=== PATIENT | female | born 1970 | race Caucasian/White ===

== ENCOUNTER 2023-06-12 08:11 | Day surgery (SDC) | payer OTHER ==
[~2023-06-12] VITALS: Ht 164 cm; Wt 139.4 kg
[~2023-06-12 08:11] MED LIST: ATEN25 PO; ATOR40TA PO; B-12500 MC2; HYDCHL25 PO; IBUP800 PO; LOSA50 PO; Lopressor 25 mg25 MG PO; METO25ER PO; Naprosyn500 MG PO; Norco 5-325 Ta1 EACH PO; OZEMPIC0.25 MG/02 SC; PREG300 PO; Robaxin750 MG PO; SERT100 PO; TOBR.3OPSO OP; Valium5 MG PO
[2023-06-12 09:23] VITALS: BP 141/95
[2023-06-12] MEDS ORDERED: ATOR40TA PO (09:24)
--- NOTE | 2023-06-12 09:58 | NUR ---
06/12/23 0958 Daysi Ortez History, Chart, Medications and Allergies reviewed before start of procedure.MONITOR INTACT WITH CONTINUOUS PULSE OXIMETRY, CONTINUOUS END TITAL CO2, AND INTERMITTENT BLOOD PRESSURE.3-LEAD EKG REVIEWED WITH PHYSICIAN PRIOR TO START OF PROCEDURE.O2 VIA N/C INTACT THROUGHOUT SEDATION/PROCEDURE.SEE ANESTHESIA RECORD.
[2023-06-12 11:06] VITALS: BP 139/92
[2023-06-12 11:16] VITALS: BP 141/91
[2023-06-12 11:32] VITALS: BP 154/86
--- NOTE | 2023-06-12 12:06 | NUR ---
Discharge instructions reviewed with patient. Patient verbalizes understanding. Copy given to patient to take home. Patient States Post-Procedure ride home has been arranged. Discharged via wheelchair to private car for ride home.
== END 2023-06-12 11:59 | disposition home or self-care (01) ==
LOC: ORSCMMR 08:11 → ORD 09:30 → ORSCMMR 09:45 → ORD 09:45 → ORSCMMR 11:59
PROVIDERS: Internal Medicine Gastroenterology
PROC: 0DBE8ZX Excision of Large Intestine, Via Natural or Artificial Opening Endoscopic, Diagnostic (ICD-10-PCS; principal; 2023-06-12 09:45)
PROC: 0DB78ZX Excision of Stomach, Pylorus, Via Natural or Artificial Opening Endoscopic, Diagnostic (ICD-10-PCS; principal; 2023-06-12 09:45)
PROC: 0DB98ZX Excision of Duodenum, Via Natural or Artificial Opening Endoscopic, Diagnostic (ICD-10-PCS; principal; 2023-06-12 09:45)
DX: K62.5 Hemorrhage of anus and rectum (principal); R14.0 Abdominal distension (gaseous); K31.7 Polyp of stomach and duodenum; K57.30 Diverticulosis of large intestine without perforation or abscess without bleeding; K64.4 Residual hemorrhoidal skin tags; I10 Essential (primary) hypertension; G47.33 Obstructive sleep apnea (adult) (pediatric); E11.9 Type 2 diabetes mellitus without complications; E66.01 Morbid (severe) obesity due to excess calories; Z68.43 Body mass index [BMI] 50.0-59.9, adult
CPT/HCPCS: 82947; 88305; 88342; J2001; J2250; J2704; J7120

== ENCOUNTER → 2025-03-10 | Outpatient (CLI) | payer OTHER | LOC: LAB 15:40 → LAB SHORT 15:40 | DX: R30.0 Dysuria (principal); N39.0 Urinary tract infection, site not specified; R35.0 Frequency of micturition | CPT/HCPCS: 87077; 87086; 87186 ==